=== PATIENT | female | born 1940 | race Two or more races ===

== ENCOUNTER 2020-03-21 10:59 | Outpatient (CLI) | payer OTHER ==
[~2020-03-21 10:59] MED LIST: COZAAR25 MG PO; HYZAAR 50-12.1 UDTAB; INDERAL LA80 MG PO; SPIRIVA
== END 2020-03-21 11:02 | disposition home or self-care (01) ==
LOC: NUCLEAR 10:59
PROVIDERS: ATTEND Internal Medicine
DX: I65.23 Occlusion and stenosis of bilateral carotid arteries (principal); F32.9 Major depressive disorder, single episode, unspecified; H53.8 Other visual disturbances; Z68.24 Body mass index [BMI] 24.0-24.9, adult; E11.9 Type 2 diabetes mellitus without complications; J44.9 Chronic obstructive pulmonary disease, unspecified; J44.1 Chronic obstructive pulmonary disease with (acute) exacerbation; H25.12 Age-related nuclear cataract, left eye; M89.8X0 Other specified disorders of bone, multiple sites; E55.9 Vitamin D deficiency, unspecified; E46 Unspecified protein-calorie malnutrition; R51 Headache

== ENCOUNTER 2025-02-28 08:52 | Emergency (ER) | payer OTHER ==
[~2025-02-28] VITALS: Ht 160 cm; Wt 44.9 kg
[2025-02-28 11:31] LABS: BASO % 0.4 % (0.1-1.2); EOS # 0.02 (0.04-0.54); EOS % 0.2 % (0.7-7.0); HEMATOCRIT 48.2 % (34.1-44.9); LYMPH # 2.07 (1.18-3.74); LYMPH % 25.3 % (19.3-53.1); MEAN CORPUSCULAR HEMOGLOBIN 30.5 pg (25.6-32.2); MONO # 0.92 (0.24-0.82); MONO % 11.2 % (4.7-12.5); NEUT # 5.13 (1.56-6.13); NEUT % 62.7 % (34.0-71.1); PLATELET COUNT 281 K/uL (163-369); RED BLOOD COUNT 5.25 M/uL (3.93-5.22); RED CELL DISTRIBUTION WIDTH 13.1 % (11.6-14.4)
[2025-02-28 11:33] LABS: INFLUENZA A AG NEGATIVE (NEGATIVE)
[2025-02-28 11:34] LABS: COVID-19 AG POSITIVE (NEGATIVE)
== END 2025-02-28 12:32 | disposition home or self-care (01) ==
LOC: ER 09:07
PROVIDERS: General Practice
DX: U07.1 COVID-19 (principal); R51.9 Headache, unspecified; I10 Essential (primary) hypertension